=== PATIENT | male | born 1965 | race Caucasian/White ===

== ENCOUNTER 2022-07-10 16:00 | Emergency (ER) | payer OTHER, SELFPAY ==
--- NOTE | ~2022-07-10 | CT_ITS ---
EXAMINATION: CT abdomen pelvis w con DATE: 07/10/2022 18:06 INDICATION: irreducible hernia TECHNIQUE: Computed tomography (CT) of the abdomen and pelvis was performed with 100 mL Omnipaque-350 intravenous contrast. Automated exposure control and iterative reconstruction technique were employe d. The dose-length product was 519.92 mGy-cm. COMPARISON: None. FINDINGS: Lower thorax: Mild coronary artery calcification. Liver: Diffuse fatty infiltration Biliary/Gallbladder: Gallbladder is normal. No bile duct dilation. Pancreas: No mass or duct dilation. Spleen: Normal. Adrenals:No mass. Kidneys: No mass, stone, or hydronephrosis. GI tract: Minimal distal esophageal and gastric wall edema, as can be seen with mild esophagitis/damari ritis. No small or large bowel dilation. Normal appendix. Mesentery/Peritoneum: No ascites, mass, or free air. Mesenteric edema in the upper small bowel mesent hayley with multiple adjacent prominent lymph nodes. Retroperitoneum: No mass. Pelvis: Bladder wall thickening. Mild prostatomegaly.. Soft Tissues: Moderate fat-containing umbilical hernia. The hernia has a wide mouth, measuring 1.6 cm . No significant fat stranding or fluid within the hernia sac. Small bilateral fat-containing uncompl icated inguinal hernias. Bones: No acute osseous finding. IMPRESSION: Hepatic steatosis. Mesenteric panniculitis. Uncomplicated appearing moderate sized, wide necked, fat- containing umbilical hernia. Reviewed, dictated and finalized at [facility]. IMPRESSION: Hepatic steatosis. Mesenteric panniculitis. Uncomplicated appearing moderate si zed, wide necked, fat-containing umbilical hernia.
[2022-07-10 16:04] VITALS: BP 158/104; PULSE 88; RESP 16; TEMP 36.6; O2SAT 100
[2022-07-10 16:41] LABS: Basophils Percent Auto 0.3 % (0.2-1.2); Eosinophils Absolute Auto 0.2 K/mm3 (0-0.3); Hematocrit 46.1 % (42.0-52.0); Hemoglobin 15.7 g/dL (14.0-18.0); Immature Granulocyte Absolute 0.06 K/mm3 (0.00-0.031); Immature Granulocyte Percent A 0.8 % (0-0.5); Lymphocytes Absolute Auto 1.93 K/mm3 (0.9-3.2); Lymphocytes Percent Auto 24.4 % (18.3-44.2); Mean Corpuscular HGB Conc 34.1 g/dl (32-36); Mean Corpuscular Hemoglobin 31.2 pg (26-34); Mean Corpuscular Volume 91.5 fl (80-100); Mean Platelet Volume 11.2 fl (7.4-10.4); Monocytes Absolute Auto 0.6 K/mm3 (0.1-0.6); Monocytes Percent Auto 7.6 % (2.6-8.5); Neutrophils Absolute Auto 5.1 K/mm3 (1.3-6.7); Neutrophils Percent Auto 64.9 % (45.5-73.1); Platelet Count Result 169 k/mm3 (150-375); Red Blood Count 5.04 M/mm3 (4.6-6.20); Red Cell Distribution Width 11.9 % (11.5-14.5); White Blood Count 7.9 K/mm3 (4.5-10.0)
[2022-07-10 16:42] LABS: Appearance Urine Clear (Clear); Bilirubin Urine Negative (Negative); Blood Urine Negative (Negative); Color Urine Yellow (Yellow); Glucose Urine UA Negative (Negative); Ketones Urine Negative (Negative); Leukocyte Esterase Ur Negative LEU/UL (Negative); Nitrate Urine Negative (Negative); Protein Urine Negative (Negative); Specific Grav Ur 1.023 (1.001-1.035); Urobilinogen Urine 0.2 mg/dL (<2.0)
[2022-07-10 16:45] LABS: Add Urine Microscopic? NO
[2022-07-10 16:55] LABS: Alanine Aminotransferase 70 U/L (6-50); Alkaline Phosphatase 63 U/L (38-126); Anion Gap 9 mmol/L (8-16); Aspartate Amino Transferase 46 U/L (17-59); Bilirubin,Total 0.8 mg/dL (0.2-1.3); Blood Urea Nitrogen 16 mg/dL (9-20); Calcium 9.7 mg/dL (8.4-10.2); Carbon Dioxide 28 mmol/L (22-30); Chloride 104 mmol/L (98-107); Estimated CRCL calculation 84 ml/min; Estimated Glomerular Filt Rate > 60; Glucose 117 mg/dL (65-110); Lipase 100 U/L (23-300); Potassium 4.2 mmol/L (3.4-5.0); Sodium 141 mmol/L (137-145)
--- NOTE | 2022-07-10 17:02 | ED.ABDPAIN ---
HPI - Abdominal Pain General Chief Complaint: Abdominal Pain Stated Complaint: abd pain Time Seen by Provider: 07/10/22 16:34 Source: patient Mode of arrival: ambulatory Limitations: no limitations History of Present Illness HPI narrative: This is a 57-year-old male presents to the ED with chief complaint of abdominal pain beginning this morning after he woke up. Patient has noticed umbilical swelling for the past several years but has never had pain until today. Reports pain is continuous. It is exacerbated with certain movements such as sitting up or crunching up. He reports pain at a 7 out of 10. Describes it as a sharp, stabbing pain. Denies any problems with bowel movements or urination. Denies fevers, chills, chest pain, shortness of breath, nausea, vomiting. Related Data Allergies Allergy/AdvReac Type Severity Reaction Status Date / Time No Known Allergies Allergy Verified 07/10/22 16:18 Review of Systems Review of Systems: CONSTITUTIONAL: Denies fever, chills, or sweats. EYES: Denies visual changes, redness, or discharge. ENT: Denies rhinorrhea, congestion, sore throat, or otalgia. CARDIOVASCULAR: Denies chest pain, palpitations, or edema. RESPIRATORY: Denies cough or dyspnea. GASTROINTESTINAL: Endorses abdominal pain and hernia. Denies nausea, vomiting, or diarrhea. GENITOURINARY: Denies dysuria or hematuria. SKIN: Denies rash or itching. MUSCULOSKELETAL: Denies back pain, joint pain, or myalgia. NEUROLOGIC: Denies headache, numbness, dizziness, or weakness. PSYCHIATRIC: Denies anxiety or depression. Exam Narrative: GENERAL: Well-appearing, well-nourished, and in no acute distress. HEAD: Normocephalic, atraumatic. EYES: PERRLA and EOMI. ENT: Nares clear, no rhinorrhea or epistaxis. Mucous membranes moist. Oropharynx without tonsillar hypertrophy exudate or other lesions. NECK: Supple. No adenopathy or masses. CHEST: No respiratory distress. Clear to auscultation. No wheezes rales or rhonchi HEART: Regular rate and rhythm. No murmur heard. Normal peripheral pulses. ABDOMEN: Central umbilical hernia is present. Mildly tender. Unable to reduce hernia on exam. Abdomen is otherwise Soft, nontender, nondistended, normal active bowel sounds. Negative peritoneal signs. Negative psoas or obturator sign. EXTREMITIES: Normal range of motion. No edema. SKIN: Warm, dry, no rash. NEURO: Alert and oriented x3. No focal deficits. PSYCH: Normal mood and affect. Course Course Emergency Course: Discussed case with Dr. Mendoza (general surgery) who recommends outpatient follow-up for this hernia. No emergent need for surgery at this point. Patient can make an appointment with him or one of his partners Vital Signs Vital signs: Vital Signs Temperature 98 F 07/10/22 16:04 Pulse Rate 88 07/10/22 16:04 Respiratory Rate 16 07/10/22 16:04 Blood Pressure 158/104 H 07/10/22 16:04 Pulse Oximetry 100 07/10/22 16:04 Oxygen Delivery Room Air 07/10/22 16:04 Temperature 98 F 07/10/22 16:04 Pulse Rate 76 07/10/22 19:04 Respiratory Rate 18 07/10/22 19:04 Blood Pressure 140/100 H 07/10/22 19:04 Pulse Oximetry 100 07/10/22 19:04 Oxygen Delivery Room Air 07/10/22 16:04 MDM - Abdominal Pain MDM Narrative Medical decision making narrative: This is a 57-year-old male with chief complaint of hernia ongoing for many years and just recently painful for the first time today. He reports increased pain with certain movements like crunching. Vitals are stable. Declines pain meds at this time. Exam shows a nonreducible umbilical hernia. No significant tenderness or overlying skin changes present. I did order a CT scan of the abdomen as I was unable to reduce this. CBC and CMP unremarkable. CT of the abdomen pelvis shows Hepatic steatosis. Mesenteric panniculitis. Uncomplicated appearing moderate sized, wide necked, fat-containing umbilical hernia.. Discussed the case with Dr. Mendoza (general surgery
[2022-07-10 19:04] VITALS: BP 140/100; PULSE 76; RESP 18; O2SAT 100
== END 2022-07-10 19:27 | disposition home or self-care (01) ==
PROVIDERS: Emergency Medicine; Emergency Provider Physician Assistant
DX: K42.9 Umbilical hernia without obstruction or gangrene (principal); K76.0 Fatty (change of) liver, not elsewhere classified
CPT/HCPCS: 36415; 74177; 80053; 81003; 83690; 85025; 99284; Q9967

== ENCOUNTER 2022-07-26 08:41 | Outpatient (CLI) | payer OTHER, SELFPAY | END 2022-07-26 08:42 | disposition home or self-care (01) | PROVIDERS: Visit Provider Surgery | DX: Z01.812 Encounter for preprocedural laboratory examination (principal); K42.0 Umbilical hernia with obstruction, without gangrene | CPT/HCPCS: 36415; 86850; 86900; 86901 ==

== ENCOUNTER 2022-07-28 01:39 | Day surgery (SDC) | payer OTHER, SELFPAY ==
[2022-07-20 10:09] VITALS: BMI 28.4
--- NOTE | 2022-07-20 10:13 | PC.NURSE ---
Report to the Outpatient Waiting Room, entrance under the green pavilion located off [facility], at time 9:30 on date 07/28/22. Planned Procedure Time: 11:30. Time changes happen often and if your time is changed the preop area will call you the afternoon before. - You and your visitor will be asked to self-screen and do not enter if you have any COVID symptoms. - Only one visitor is requested with a max of two and NO children visitors are allowed at this time. - The patient visitor may be requested to leave or wait in car when not with patient due to distancing restrictions. - A mask is optional within the hospital at this time. Patients may have clear liquids (water, carbonated beverages, clear teas, apple juice) until 3 hours prior to surgery (8:30) with a maximum of 20 ounces. - No food from midnight until time of surgery Take the following medications with a SIP of water the morning of surgery: N/A DO NOT STOP ANY OF YOUR OTHER PRESCRIPTION MEDICATIONS PRIOR TO SURGERY EXCEPT THE FOLLOWING Medications to discontinue per physician: N/A Date to take last dose: N/A Please no make-up, nail b[place], hairspray, perfume, deodorant, or body powder the day of surgery. No jewelry (including any body piercings) or valuables the day of surgery, leave them at home. Please take a shower or bath the night before, or the morning of, surgery with an antibacterial soap (HIBICLENS). Wear comfortable, loose fitting clothing. - Jewelry must be removed prior to entering the operating room. Rings and piercings that are not removed may be cut off. - The hospital will not accept responsibility for valuables. - Please leave all valuables, including medications, at home the day of surgery. If you are going home after surgery, a licensed production truck driver must drive you home. - NO public transportation without another adult if you receive anesthesia. - We recommend that an adult stay with you for 24 hours following discharge. - We also recommend that you do not drive, make important decision, drink alcoholic beverages, or take any drugs that were not prescribed by your health care provider for at least 24 hours after your discharge time. Follow any additional instructions given to you from your surgeon. If you or anyone in your household have experienced Covid symptoms in the past week, please notify your surgeon or the nurse liaison at the phone number below for possible testing. Telephone instructions given to PT Herman [facility] and asked if any additional questions and then verbalized understanding. Patient advised to call surgeon office or pre surgery nurse liaison [phone] if any additional questions.
[2022-07-28] VITALS (9 sets, daily range): BP systolic 105–146; BP diastolic 71–91; PULSE 77–87; RESP 14–18; TEMP 36.5–36.8; O2SAT 94–100
[2022-07-28] MEDS: ACETAMINOPHEN 500 MG TABLET 1000 MG PO (10:05)
[2022-07-28] MEDS: KETOROLAC 15 MG/ML VIAL (*BKC) IV PUSH (10:05)
[2022-07-28] MEDS: LACTATED RINGERS 1,000 ML 30 ML IV CONT ×2 (10:29→14:15)
--- NOTE | 2022-07-28 10:34 | P.PNAN_ITS ---
Anes - Initial Pre Proc Eval Procedure: Operation Date: 07/28/22 11:30 Proposed Procedures p Robotic Assisted Incarcerated Umbilical Hernia Repair with Mesh - Courtney Fields MD Date/Time: 07/28/22 10:34 Surgeon: Courtney Fields MD Pre Op Diagnosis: incarcerated umbilical hernia Patient Data Age: 57 Gender: M Height: 1.78 m Weight: 91.4 kg Last Vital Signs Temp 36.8 C 07/28/22 09:40 Pulse 86 07/28/22 09:40 Resp 18 07/28/22 09:40 BP 134/82 07/28/22 09:40 Pulse Ox 100 07/28/22 09:40 O2 Del Method Room Air 07/28/22 09:40 Allergies Allergy/AdvReac Type Severity Reaction Status Date / Time No Known Allergies Allergy Verified 07/28/22 09:49 Home Medications Medication Instructions Recorded Confirmed Type No Home Medications 07/20/22 07/28/22 History Patient hx anesthesia problems: none Family hx anesthesia problems: none Results Review: All pre-operative results and documents have been reviewed as part of the pre- operative evaluation. PMFSH Family History Family History Father Lung cancer Mother Hypertension Unknown Cancer Social History Social History Smoking status: Never smoker Alcohol intake: current Drinks per week: 20 Alcohol use details: BEER Substance use: never Substance use type: does not use Living arrangements: with family Spiritual care concerns: No Anes - Eval Final PreProcedure Day of Procedure 07/28/22 10:34 Patient weight: normal Heart: regular rate and rhythm Lungs: clear to auscultation Airway: Mallampati scale class II Neurological: alert and oriented Last oral intake: >/= 8 hours ASA classification: II Emergent: no Anesthetic plan: proceed Anesthesia type and monitoring: general ETT and standard monitoring Results Review: All pre-operative results and documents have been reviewed as part of the pre- operative evaluation. Informed Consent: The patient's anesthetic plan and its attendant risks and benefits were discussed with the patient/family/POA. Questions were solicited and answers provided to the satisfaction of the patient/family/POA.
--- NOTE | 2022-07-28 11:54 | WPDHPUPDATE1 ---
History and Physical Update Update Date/Time: 07/28/22 11:54 History and Physical has been reviewed, including an updated exam of the patient. There are NO changes in the patient's condition. Risks, benefits, and alternatives have been discussed and questions answered. Patient agrees to proceed with procedure.
[2022-07-28] MEDS: ceFAZolin 2 GM/D5W 50 ML 2 GM/50 ML BAG IVPB (12:04)
[2022-07-28] MEDS: BUPIVACAINE/EPINEPHRINE 0.5% 50 ML VIAL 30 ML INFILTRATE (13:17)
--- NOTE | 2022-07-28 14:26 | W.PM.PROC2 ---
Procedure Note - Detailed Date of Procedure 07/28/22 Pre-op Diagnosis incarcerated umbilical hernia Post-op Diagnosis Same Procedure Performed robotic assisted incarcerated umbilical hernia with mesh Surgeon Courtney Fields MD Anesthesia General Indications 57 y/o M presenting c moderate sized symptomatic incarcerated umbilical hernia Findings 3.5 cm umbilical hernia c incarcerated preperitoneal fat and sigmoid colon Description of Procedure The patient was taken the operating room placed in the supine position. After adequate induction of general anesthesia, the patient was prepped and draped in normal sterile fashion. A time-out was then done to verify the patient's identity as well as the procedure being performed. I began by making a 5 mm incision in the left upper quadrant. Through this, a Veress needle was placed into the peritoneal cavity and CO2 gas was insufflated. After adequate pneumoperitoneum was achieved, a 5 mm trocar was placed through this incision. I then placed the laparoscope through this trocar site and under direct visualization I placed a 8 mm port in the left mid abdomen as well as an additional 8 mm port in the left lower abdomen. I then moved the camera to the lower port and replaced the 5 mm port with a 12 mm port. The robot was then docked to the 3 port sites. I then went to the robotic console. I began by identifying the hernia. A moderate-sized incarcerated umbilical hernia was noted. There was noted to be incarcerated sigmoid colon and this was gently reduced. The colon was examined after redcution and noted to be viable and healthy. I created a preperitoneal flap approximately 6 cm lateral to the hernia. This flap was carried widely superior and inferior to the defect. I then was able to reduce this hernia. The hernia was noted to contain a large amount of preperitoneal fat. Once reduced, I also reduced and dissected out the hernia sac. I then carried the flap distally past the hernia. I then closed the approximately 3.5 cm defect with 0 strata fix suture. I then placed a 12x12 cm bard soft mesh into the abdominal cavity. I then centered the mesh over the defect. Once this was done, I placed 2 0 Vicryl interrupted sutures to hold the mesh in place in the 4 cardinal directions. Once the mesh was in place, I was happy with our tension-free repair. The mesh was noted to have good overlap of the defect. I then closed the flap with 2 0 V lock. At this point, the robot was undocked and all ports were removed. I then closed the 12 mm port site with an 0 Vicryl [id number] suture at the fascial level. All port sites were then closed with 4 O Monocryl subcuticular suture. The patient tolerated the procedure well, is extubated in the operating room postoperative, and will be transferred to the recovery room in stable condition. Implants 12 x 12 cm Bard soft mesh Estimated Blood Loss 5 Drains No Packing No Pathology None sent Complications No immediate complications Condition Stable Disposition PACU [facility] Billing Surgery - Charge Forward: Surgery Billing
[2022-07-28] MEDS: fentaNYL CITRATE INJ (*CRX) 100 MCG/2 ML VIAL 25 MCG IV PUSH ×8 (14:35→15:05)
[2022-07-28] MEDS: oxyCODONE HCL (*CRX) 5 MG TAB IR PO (15:17)
== END 2022-07-28 16:15 | disposition home or self-care (01) ==
PROVIDERS: Visit Provider Surgery
PROC: (CPT 49594; principal; 2022-07-28 11:30)
DX: K42.0 Umbilical hernia with obstruction, without gangrene (principal)
CPT/HCPCS: 49594; S2900; 36415; 86850; 86900; 86901; A9270; C1781; J0690; J1100; J1885; J2250; J2405; J2704; J3010; J7030; J7120

== ENCOUNTER 2023-04-16 11:02 | Emergency (ER) | payer OTHER, SELFPAY ==
[2023-04-16 11:24] VITALS: BP 149/93; PULSE 95; RESP 20; TEMP 36.8; O2SAT 100
--- NOTE | 2023-04-16 12:47 | ED.BACK ---
HPI - Back Pain/Injury General Chief Complaint: Back Pain/Injury Stated Complaint: back pain Time Seen by Provider: 04/16/23 12:01 History of Present Illness HPI Narrative: Patient is a 57-year-old male who presents ER with back pain. Reports had no family woke up this morning but he reached internal in the shower and had sudden grabbing in his low back. Reports chronic pain and has had injections in the past. No pain radiating down the legs or into the groin. No saddle anesthesia. Related Data Allergies Allergy/AdvReac Type Severity Reaction Status Date / Time No Known Allergies Allergy Verified 04/16/23 11:26 Review of Systems Constitutional: Constitutional: Reports no additional constitutional complaints Musculoskeletal: Musculoskeletal: Reports back pain, Denies arthralgias and Denies joint swelling Neurologic: Denies focal weakness and Denies numbness PMFSH Surgical History Surgical History (Updated 08/10/22 @ 09:23 by Jennifer Merino [facility]) Hx of umbilical hernia repair Robotic assisted incarcerated umbilical hernia with mesh 07/28/[address] Fields. Family History Family History Father Lung cancer Mother Hypertension Unknown Cancer Social History Social History Smoking status: Never smoker Alcohol intake: current Drinks per week: 20 Alcohol use details: BEER Substance use: never Substance use type: does not use Living arrangements: with family Spiritual care concerns: No Exam Narrative: GENERAL: Well-appearing, well-nourished, and in no acute distress. HEAD: Normocephalic, atraumatic. CHEST: Clear to auscultation. No respiratory distress. HEART: Regular rate and rhythm. Normal peripheral pulses. back: Paraspinal muscle tenderness over L3 bilaterally without midline tenderness. EXTREMITIES: Normal range of motion. No edema. SKIN: Warm, dry, no rash. NEURO: Alert and oriented x3. PSYCH: Normal mood and affect. Course Course Emergency Course: Full that muscle strain. No red flag symptoms for spinal epidural abscess or cauda equina. Discharge home with supportive care. Vital Signs Vital signs: Vital Signs Temperature 98.3 F 04/16/23 11:24 Pulse Rate 95 04/16/23 11:24 Respiratory Rate 20 04/16/23 11:24 Blood Pressure 149/93 H 04/16/23 11:24 Pulse Oximetry 100 04/16/23 11:24 Oxygen Delivery Room Air 04/16/23 11:24 Temperature 98.3 F 04/16/23 11:24 Pulse Rate 95 04/16/23 11:24 Respiratory Rate 20 04/16/23 11:24 Blood Pressure 149/93 H 04/16/23 11:24 Pulse Oximetry 100 04/16/23 11:24 Oxygen Delivery Room Air 04/16/23 11:24 Discharge Plan Discharge Clinical Impression: Low back strain Patient Disposition: Home, Self-Care Condition: Stable Instructions: Acute Low Back Pain (ED) Additional Instructions: Return to the ER if you have increased pain in your back, you develop lower extremity weakness/numbness/paralysis, you have numbness or tingling in your private parts, or you are unable to control your ability to urinate/stool. Follow-up with your primary care provider. Prescriptions: New cyclobenzaprine 10 mg tablet 10 mg PO TID PRN (Reason: muscle spasm) Qty: 20 0RF naproxen 375 mg tablet 375 mg PO BID Qty: 14 0RF cyclobenzaprine 10 mg tablet 10 mg PO TID PRN (Reason: muscle spasm) Qty: 20 0RF naproxen 375 mg tablet 375 mg PO BID Qty: 14 0RF No Action docusate sodium [Colace] 100 mg capsule 100 mg PO BID Qty: 30 0RF Follow-up/Referrals: UNKNOWN,DOCTOR [Primary Care Provider] -
[2023-04-16] MEDS: KETOROLAC (*BKC) 60 MG/2 ML VIAL IM (13:02)
== END 2023-04-16 13:15 | disposition home or self-care (01) ==
PROVIDERS: Emergency Provider Emergency Medicine
DX: S39.012A Strain of muscle, fascia and tendon of lower back, initial encounter (principal)
CPT/HCPCS: 96372; 99283; J1885